=== PATIENT | male | born 2000 | race Hispanic/Latino ===

== ENCOUNTER 2021-01-11 15:49 | Emergency (ER) | payer OTHER, SELFPAY ==
--- NOTE | 2021-01-11 17:01 | ER ---
Nurse's Notes [facility] Name: Jb Martinez Age: 20 yrs Sex: Male : 2000 Arrival Date: 01/11/2021 Time: 15:52 Bed Waiting Private MD: Diagnosis: ED Course: 01/11 15:52 Patient arrived in ED. as Administered Medications: No medications were administered Outcome: 17:00 Patient left the ED. iw Signatures: Opal Atkins Irene, RN RN iw
== END 2021-01-11 17:00 | disposition left against medical advice (07) ==
LOC: ER 15:49
DX: Z02.9 Encounter for administrative examinations, unspecified (principal)